=== PATIENT | female | born 1980 | race Caucasian/White ===

== ENCOUNTER 2017-04-05 19:48 | Emergency (ER) | payer OTHER ==
[2017-04-05 19:58] VITALS: BP 110/69; PULSE 82; TEMP 98; BMI 30.8
--- NOTE | 2017-04-05 20:27 | PDOC ---
History of Present Illness - General History Source: Patient Exam Limitations: No Limitations - History of Present Illness Initial Comments: 04/05/17 22:08 Patient is a 36 year old female with no significant past medical history who presents to the ED with complaints of bilateral buttock rash that began 3 days ago. Patient states getting pimple last the she began scratching before noticing the formation of a rash with increased itching around the affected area. She reports taking benadryl and cortisone cream for rash with slight relief. Patient states experiencing no changes in diet, soap, or detergent. She reports eating chocolate 2 days ago and oatmeal with milk or eggs everyday for breakfast. Patient states her last menstrual period was March 09 and should be expecting this month's cycle soon. Denies eczema, diabetes.Denies fever. chills. Denies nausea, vomiting. Denies chest pain, SOB. Denies contact with sick individuals, out of state travel. Denies any other symptoms Allergies: None Surgical history: Right ear surgery Social history: Works in post office. Lives with . No smoking. No alcohol. No illicit drugs. PMD: None <Benjamín Victor - Last Filed: 04/05/17 22:08> <Lorelei Escobar - Last Filed: 04/05/17 22:55> - General Chief Complaint: Rash Stated Complaint: ALLERGIC REACTION Time Seen by Provider: 04/05/17 20:27 Past History <Benjamín Victor - Last Filed: 04/05/17 22:08> - Past Medical History COPD: No Other medical history: Pt denies - Suicide/Smoking/Psychosocial Hx Smoking History: Never smoked Have you smoked in the past 12 months: No Information on smoking cessation initiated: No Hx Alcohol Use: No Drug/Substance Use Hx: No Substance Use Type: None <Lorelei Escobar - Last Filed: 04/05/17 22:55> - Past Medical History Allergies/Adverse Reactions: Allergies Allergy/AdvReac Type Severity Reaction Status Date / Time No Known Allergies Allergy Verified 04/05/17 19:54 Home Medications: Ambulatory Orders Diphenhydramine HCl [Benadryl -] 25 mg PO Q6H #28 capsule 04/05/17 Prednisone [Deltasone -] 2 tab PO UTDICT #10 tablet 04/05/17 Review of Systems - Review of Systems Able to Perform ROS?: Yes Comments:: 04/05/17 22:08 GENERAL/CONSTITUTIONAL: No fever or chills. No weakness. HEAD, EYES, EARS, NOSE AND THROAT: No change in vision. No ear pain or discharge. No sore throat. CARDIOVASCULAR: No chest pain or shortness of breath. RESPIRATORY: No cough, wheezing, or hemoptysis. GASTROINTESTINAL: No nausea, vomiting, diarrhea or constipation. GENITOURINARY: No dysuria, frequency, or change in urination. MUSCULOSKELETAL: No joint or muscle swelling or pain. No neck or back pain. SKIN: +Bilateral buttock rash. NEUROLOGIC: No headache, vertigo, loss of consciousness, or change in strength/ sensation. ENDOCRINE: No increased thirst. No abnormal weight change. HEMATOLOGIC/LYMPHATIC: No anemia, easy bleeding, or history of blood clots. ALLERGIC/IMMUNOLOGIC: No hives or skin allergy. All Other Systems: Reviewed and Negative <Benjamín Victor - Last Filed: 04/05/17 22:08> *Physical Exam - Vital Signs Last Vital Signs Temp Pulse Resp BP Pulse Ox 98.0 F 82 18 110/69 98 04/05/17 19:55 04/05/17 19:55 04/05/17 19:55 04/05/17 19:55 04/05/17 19:55 - Physical Exam Comments: 04/05/17 22:08 GENERAL: Awake, alert, and fully oriented, in no acute distress HEAD: No signs of trauma EYES: PERRLA, EOMI, sclera anicteric, conjunctiva clear ENT: Auricles normal inspection, hearing grossly normal, nares patent, oropharynx clear without exudates. Moist mucosa NECK: Normal ROM, supple, no lymphadenopathy, JVD, or masses LUNGS: Breath sounds equal, clear to auscultation bilaterally. No wheezes, and no crackles HEART: Regular rate and rhythm, normal S1 and S2, no murmurs, rubs or gallops ABDOMEN: Soft, nontender, normoactive bowel sounds. No guarding, no rebound. No masses EXTREMITIES: Normal range of motion, no edema. No clubbing or cyanosis. No cords, erythema, or tenderness NEUROLOGICAL: Cranial nerves II through XII grossly intact. Normal speech, normal gait SKIN: +Hives on the buttocks and thighs. +Slight bruising on the right buttock. Warm, Dry, normal turgor, <Benjamín Victor - Last Filed: 04/05/17 22:08> - Vital Signs Last Vital Signs Temp Pulse Resp BP Pulse Ox 98.0 F 82 18 110/69 98 04/05/17 19:55 04/05/17 19:55 04/05/17 19:55 04/05/17 19:55 04/05/17 19:55 <Lorelei Escobar - Last Filed: 04/05/17 22:55> ED Treatment Course - Medications Given in the ED: ED Medications Discontinued Medications Generic Name Dose Route Start Last Admin Trade Name Freq PRN Reason Stop Dose Admin Diphenhydramine HCl 50 mg 04/05/17 20:55 04/05/17 21:10 Benadryl - PO 04/05/17 20:56 50 mg ONCE ONE Administration Ibuprofen 600 mg 04/05/17 20:56 04/05/17 21:10 Motrin - PO 04/05/17 20:57 600 mg ONCE ONE Administration Prednisone 40 mg 04/05/17 20:56 04/05/17 21:10 Deltasone - PO 04/05/17 20:57 40 mg ONCE ONE Administration Ranitidine HCl 300 mg 04/05/17 20:57 04/05/17 21:11 Zantac - PO 04/05/17 20:58 300 mg ONCE ONE Administration <Benjamín Victor - Last Filed: 04/05/17 22:08> Medical Decision Making - Medical Decision Making 04/05/17 22:53 Pt has hives on her lower body; buttocks and thighs. Likely food allergy. Began on Thu and on and off since that time. Pt has been taking benadryl and using steroid creams with some relief. SHe has been eating egg and cheese sandwiches daily and she may have egg allergy. 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 Pt will be given some days off. <Lorelei Escobar - Last Filed: 04/05/17 22:55> *DC/Admit/Observation/Transfer - Attestations Scribe Attestion: 04/05/17 22:08 Documentation prepared by Benjamín Victor, acting as medical coding instructor for Lorelei Escobar MD/DO. <Benjamín Victor - Last Filed: 04/05/17 22:08> - Discharge Dispostion Admit: No <Lorelei Escobar - Last Filed: 04/05/17 22:55> Diagnosis at time of Disposition: Food allergic skin reaction - Discharge Dispostion Disposition: HOME Condition at time of disposition: Stable - Prescriptions Prescriptions: Diphenhydramine HCl [Benadryl -] 25 mg PO Q6H #28 capsule Prednisone [Deltasone -] 2 tab PO UTDICT #10 tablet - Patient Instructions Printed Discharge Instructions: Food Allergies and Sensitivities (Alternative Therapy), DI for Food Allergy - Post Discharge Activity Forms/Work/School Notes: Back to Work
[2017-04-05] MEDS ORDERED: diphenhydrAMINE HCL 25 MG CAPSULE (FP) PO ONE ×2 (20:55→21:06)
[2017-04-05] MEDS ORDERED: IBUPROFEN 600 MG TABLET (FP) PO ONE ×2 (20:56→21:07)
[2017-04-05] MEDS ORDERED: predniSONE 20 MG TABLET (UD) PO ONE (20:56)
[2017-04-05] MEDS ORDERED: RANITIDINE HCL 150 MG TABLET (FP) PO ONE (20:57)
[2017-04-05] MEDS ORDERED: predniSONE 20 MG TABLET (UD) ONE (21:06)
[2017-04-05] MEDS ORDERED: RANITIDINE HCL 150 MG TABLET (FP) ONE (21:07)
== END 2017-04-05 22:05 | disposition home or self-care (01) ==
LOC: JER 19:48
DX: T78.1XXA Other adverse food reactions, not elsewhere classified, initial encounter (principal)
CPT/HCPCS: 99281-25